=== PATIENT | female | born 1985 | race Caucasian/White ===

== ENCOUNTER 2019-06-14 17:31 | Emergency (ER) | payer MEDICAID ==
--- NOTE | 2019-06-14 18:18 | EDM.PDOC ---
ED HPI GENERAL MEDICAL PROBLEM - General Chief Complaint: Lower Extremity Injury/Pain Stated Complaint: RIGHT ANKLE INJURY Time Seen by Provider: 06/14/19 18:15 Source of Information: Reports: Patient History Limitations: Reports: No Limitations - History of Present Illness INITIAL COMMENTS - FREE TEXT/NARRATIVE: pt arrived with pain in her rt ankle. She notes swelling and discomfort in her rt foot also. Onset: Today, Sudden Duration: Hour(s): Location: Reports: Lower Extremity, Right Associated Symptoms: Reports: No Other Symptoms - Related Data Allergies Allergy/AdvReac Type Severity Reaction Status Date / Time No Known Allergies Allergy Verified 06/14/19 17:58 Home Meds: Home Meds 123/Iron/Folic/Omeg3s [One-A-Day 1 Dha Sfgl] 1 cap PO DAILY [History] Past Medical History Musculoskeletal History: Reports: Fracture - Past Surgical History HEENT Surgical History: Reports: Adenoidectomy, Tonsillectomy Musculoskeletal Surgical History: Reports: ORIF Social & Family History - Tobacco Use Smoking Status *Q: Current Every Day Smoker Years of Tobacco use: 20 Packs/Tins Daily: 0.5 Review of Systems - Review of Systems Review Of Systems: See Below Constitutional: Reports: No Symptoms Eyes: Reports: No Symptoms Ears: Reports: No Symptoms Nose: Reports: No Symptoms Mouth/Throat: Reports: No Symptoms Respiratory: Reports: No Symptoms Cardiovascular: Reports: No Symptoms GI/Abdominal: Reports: No Symptoms Genitourinary: Reports: No Symptoms Musculoskeletal: Reports: Other (pain and swelling in the rt foot) Skin: Reports: No Symptoms Neurological: Reports: No Symptoms Psychiatric: Reports: No Symptoms ED EXAM, GENERAL - Physical Exam Exam: See Below Free Text/Narrative:: pt is due to deliver her baby in 2 weeks. She rolled her rt ankle. She has had a previous fracture in the leg. She does have swelling laterally on the ankle and down into the foot. Exam Limited By: No Limitations General Appearance: Alert Extremities: Other (pt has a good pulse in the foot. She has swelling laterally on the ankle. She is tender over the dorsum of the foot. She has normal pulses and normal sensation,. ) Neurological: Alert, Oriented, Normal Cognition Course - Vital Signs Last Recorded V/S: Last Vital Signs Temp 36.7 C 06/14/19 18:04 Pulse 88 06/14/19 18:04 Resp 14 06/14/19 18:04 BP 111/62 06/14/19 18:04 Pulse Ox 95 06/14/19 18:04 - Orders/Labs/Meds Orders: Active Orders 24 hr Category Date Time Status Ankle Min 3V Rt [CR] Stat Exams 06/14/19 18:13 Taken Meds: Medications Discontinued Medications Generic Name Dose Route Start Last Admin Trade Name Freq PRN Reason Stop Dose Admin Acetaminophen 650 mg 06/14/19 19:04 06/14/19 19:22 Tylenol PO 06/14/19 19:05 Not Given NOW ONE - Re-Assessments/Exams Free Text/Narrative Re-Assessment/Exam: 06/15/19 18:22 xrays were obtained which reveals her pinning from her previous fracture in the ankle. She has no fractures in the foot. She was given crutches and will use tylenol for pain. Departure - Departure Time of Disposition: 18:57 Disposition: Home, Self-Care 01 Condition: Fair Clinical Impression: Right ankle sprain - Discharge Information Instructions: Crutch Use, Adult, [id number], Ankle Sprain, [id number] Referrals: Naomie Burdick CNM [Primary Care Provider] - Forms: ED Department Discharge Care Plan Goals: elevate cool pack, stirup splint crutches. tylenol 650 q6h prn for pain. Sepsis Event Note - Evaluation Sepsis Screening Result: No Definite Risk - Focused Exam Date Exam was Performed: 06/15/19 Time Exam was Performed: 18:20 - My Orders Last 24 Hours: My Active Orders 06/14/19 18:13 Ankle Min 3V Rt [CR] Stat - Assessment/Plan Last 24 Hours: My Active Orders 06/14/19 18:13 Ankle Min 3V Rt [CR] Stat
[2019-06-14] MEDS ORDERED: Acetaminophen 325 MG Tab PO ONE (19:04)
--- NOTE | 2019-06-14 19:05 | CRLCR ---
Indication: Rolled ankle. Foot pain. Trauma. Technique: Three images of the right foot were acquired. Comparison: None Findings: There is no fracture, dislocation or destructive process acutely. There postsurgical changes involving the distal tibia. While the ankle was not formally studied, I see no ankle fracture. 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 Impression: No visible acute fracture, dislocation or destructive process involving the right foot. 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 Postsurgical changes involving the tibia. Dictated by Mango Mckeon MD @ Jun 14 2019 7:01PM Signed by Dr. Mango Mckeon @ Jun 14 2019 7:03PM
--- NOTE | 2019-06-16 11:25 | CR ---
Ankle Min 3V Rt CLINICAL HISTORY: Pain, injury FINDINGS: The soft tissues are mildly prominent around the ankle. There is an intramedullary luis angel in the tibia extending to the distal tibial metaphysis. No acute fracture or dislocation is noted. Ankle mortise is intact. Articular surfaces are smooth. Impression: Long intramedullary luis angel in the tibia No acute fracture or dislocation
== END 2019-06-14 19:23 | disposition home or self-care (01) ==
LOC: JP.ED 17:31
DX: O9A.213 Injury, poisoning and certain other consequences of external causes complicating pregnancy, third trimester (principal); S93.401A Sprain of unspecified ligament of right ankle, initial encounter; O99.333 Smoking (tobacco) complicating pregnancy, third trimester; F17.210 Nicotine dependence, cigarettes, uncomplicated; Z3A.38 38 weeks gestation of pregnancy; X50.1XXA Overexertion from prolonged static or awkward postures, initial encounter
CPT/HCPCS: 73610-26-RT; 73610-RT; 73630-RT; 99283-25

== ENCOUNTER 2019-06-15 11:05 | Inpatient (IN) | payer MEDICAID ==
[2019-06-15] MEDS ORDERED: Naloxone 0.4 MG/ML SDV IVPUSH PRN (13:54)
[2019-06-15] MEDS ORDERED: diphenhydrAMINE 50 MG/ML SDV IVPUSH PRN ×2 (13:54)
[2019-06-15] MEDS ORDERED: Sodium Chloride 0.9% 10 ML Syringe FLUSH PRN (13:54)
[2019-06-15] MEDS ORDERED: Acetaminophen 325 MG Tab PO PRN (13:54)
[2019-06-15] MEDS ORDERED: Ondansetron 4 MG/2 ML SDV IV PRN (13:54)
[2019-06-15] MEDS ORDERED: Lactated Ringers 1,000 ML IV ONE ×2 (13:54→16:10)
[2019-06-15] MEDS ORDERED: ePHEDrine 50 MG/ML SDV IVPUSH PRN ×2 (13:54)
[2019-06-15] MEDS ORDERED: Ropivacaine 200 MG in Premix Bag 1 BAG EPIDUR SCH (14:00)
--- NOTE | 2019-06-15 14:05 | PCM.LDHP ---
L&D History of Present Illness - General Date of Service: 06/15/19 Admit Problem/Dx: Patient Status Order with Admit Dx/Problem 06/15/19 13:54 Patient Status [ADT] Routine Admission Diagnosis/Problem Admission Diagnosis/Problem - Related Data Allergies/Adverse Reactions: Allergies Allergy/AdvReac Type Severity Reaction Status Date / Time No Known Allergies Allergy Verified 06/14/19 17:58 Home Medications: Home Meds 123/Iron/Folic/Omeg3s [One-A-Day 1 Dha Sfgl] 1 cap PO DAILY [History] Past Medical History HEENT History: Reports: None Cardiovascular History: Reports: None Respiratory History: Reports: None Gastrointestinal History: Reports: None Genitourinary History: Reports: None 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: Reports: Musculoskeletal History: Reports: Fracture Neurological History: Reports: None Psychiatric History: Reports: Addiction Endocrine/Metabolic History: Reports: None Hematologic History: Reports: None Immunologic History: Reports: None Oncologic (Cancer) History: Reports: None Dermatologic History: Reports: None - Infectious Disease History Infectious Disease History: Reports: Hepatitis C - Past Surgical History Head Surgeries/Procedures: Reports: None HEENT Surgical History: Reports: Adenoidectomy, Tonsillectomy Cardiovascular Surgical History: Reports: None Respiratory Surgical History: Reports: None GI Surgical History: Reports: None Female Surgical History: Reports: None Endocrine Surgical History: Reports: None Neurological Surgical History: Reports: None Musculoskeletal Surgical History: Reports: ORIF Dermatological Surgical History: Reports: None Social & Family History - Tobacco Use Smoking Status *Q: Current Every Day Smoker Years of Tobacco use: 20 Packs/Tins Daily: 0.5 Used Tobacco, but Quit: No Second Hand Smoke Exposure: Yes - Caffeine Use Caffeine Use: Reports: Coffee - Recreational Drug Use Recreational Drug Use: No H&P Review of Systems - Review of Systems: Review Of Systems: See Below General: Reports: No Symptoms HEENT: Reports: No Symptoms Pulmonary: Reports: No Symptoms Cardiovascular: Reports: No Symptoms Gastrointestinal: Reports: No Symptoms Genitourinary: Reports: No Symptoms Musculoskeletal: Reports: No Symptoms Skin: Reports: No Symptoms Psychiatric: Reports: No Symptoms Neurological: Reports: No Symptoms Hematologic/Lymphatic: Reports: No Symptoms Immunologic: Reports: No Symptoms L&D Exam - Exam Exam: See Below - Vital Signs Vital Signs: Last Vital Signs Temp 35.3 C L 06/15/19 11:10 Pulse 121 H 06/15/19 11:10 Resp 16 06/15/19 11:10 BP 123/74 06/15/19 11:10 Pulse Ox 98 06/15/19 11:10 Weight: 92.986 kg - OB Specific Contraction Duration (sec): 20-100 Contraction Frequency (min): 3-7 Contraction Intensity: Mild to Moderate Movement: Active Heart Tones: Present Heart Rate (FHR) Variability: Moderate (6-25 bmp) Presentation: Vertex - Valadez Score Valadez Score Cervix Position: Anterior Valadez Score Consistency: Soft Valadez Score Effacement: >80% Valadez Score Dilation: 1-2 cm Valadez Score 's Station: -1 ,0 Valadez Score Total: 10 - Exam General: Alert, Oriented, Cooperative HEENT: PERRLA, Conjunctiva Clear, EACs Clear, EOMI, Hearing Intact, Mucosa Moist & [place], Nares Patent, Normal Nasal Septum, Posterior Pharynx Clear, TMs Clear Neck: Supple, Trachea Midline Lungs: Clear to Auscultation, Normal Respiratory Effort Cardiovascular: Regular Rate, Regular Rhythm GI/Abdominal Exam: Normal Bowel Sounds, Soft, Non-Tender, No Organomegaly, No Distention, No Abnormal Bruit, No Mass, Pelvis Stable Rectal Exam: Normal Exam, Normal Rectal Tone Genitourinary: Normal external exam, Normal bimanual exam, Normal speculum exam Back Exam: Normal Inspection, Full Range of Motion Extremities: Normal Inspection, Normal Range of Motion, Non-Tender, No Pedal Edema, Normal Capillary Refill Skin: Warm, Dry, Intact Neurological: Cranial Nerves Intact, Reflexes Equal Bilateral DTR: 2+: Patella (L), Patella (R) Psychiatric: Alert, Normal Affect, Normal Mood - Patient Data Lab Results Last 24 hrs: Laboratory Results - last 24 hr 06/15/19 06/15/19 06/15/19 Range/Units 11:10 11:11 11:51 WBC (4.5-11.0) K/uL RBC (3.30-5.50) M/uL Hgb (12.0-15.0) g/dL Hct (36.0-48.0) % MCV (80-98) fL MCH (27-31) pg MCHC (32-36) % Plt Count (150-400) K/uL Neut % (Auto) (36-66) % Lymph % (Auto) (24-44) % [place] % (Auto) (2-6) % Eos % (Auto) (2-4) % Baso % (Auto) (0-1) % Urine Color Yellow (YELLOW) Urine Appearance Slightly cloudy A (CLEAR) Urine pH 7.0 (5.0-8.0) Ur Specific [place] 1.020 (1.008-1.030) Urine Protein 30 H (NEGATIVE) mg/dL Urine Glucose (UA) Negative (NEGATIVE) mg/dL Urine Ketones Negative (NEGATIVE) mg/dL Urine Occult Blood Large H (NEGATIVE) Urine Nitrite Negative (NEGATIVE) Urine Bilirubin Negative (NEGATIVE) Urine Urobilinogen 1.0 (0.2-1.0) EU/dL Ur Leukocyte Esterase Negative (NEGATIVE) Urine RBC 10-20 H (0-5) Urine WBC 0-5 (0-5) Ur Epithelial Cells Many Amorphous Sediment Not seen Urine Bacteria Few Urine Mucus Not seen Membrane Rupture Positive H (NEGATIVE) Urine Opiates Screen Negative (NEGATIVE) Ur Oxycodone Screen Negative (NEGATIVE) Urine Methadone Screen Negative (NEGATIVE) Ur Propoxyphene Screen Negative (NEGATIVE) Ur Barbiturates Screen Negative (NEGATIVE) Ur Tricyclics Screen Negative (NEGATIVE) Ur Phencyclidine Scrn Negative (NEGATIVE) Ur Amphetamine Screen Negative (NEGATIVE) U Methamphetamines Scrn Negative (NEGATIVE) Urine MDMA Screen Negative (NEGATIVE) U Benzodiazepines Scrn Negative (NEGATIVE) U Cocaine Metab Screen Negative (NEGATIVE) U Marijuana (THC) Screen Negative (NEGATIVE) 06/15/19 Range/Units 12:34 WBC 12.3 H (4.5-11.0) K/uL RBC 3.83 (3.30-5.50) M/uL Hgb 9.7 L (12.0-15.0) g/dL Hct 31.6 L (36.0-48.0) % MCV 83 (80-98) fL MCH 25 L (27-31) pg MCHC 31 L (32-36) % Plt Count 445 H (150-400) K/uL Neut % (Auto) 76 H (36-66) % Lymph % (Auto) 16 L (24-44) % [place] % (Auto) 7 H (2-6) % Eos % (Auto) 1 L (2-4) % Baso % (Auto) 0 (0-1) % Urine Color (YELLOW) Urine Appearance (CLEAR) Urine pH (5.0-8.0) Ur Specific [place] (1.008-1.030) Urine Protein (NEGATIVE) mg/dL Urine Glucose (UA) (NEGATIVE) mg/dL Urine Ketones (NEGATIVE) mg/dL Urine Occult Blood (NEGATIVE) Urine Nitrite (NEGATIVE) Urine Bilirubin (NEGATIVE) Urine Urobilinogen (0.2-1.0) EU/dL Ur Leukocyte Esterase (NEGATIVE) Urine RBC (0-5) Urine WBC (0-5) Ur Epithelial Cells Amorphous Sediment Urine Bacteria Urine Mucus Membrane Rupture (NEGATIVE) Urine Opiates Screen (NEGATIVE) Ur Oxycodone Screen (NEGATIVE) Urine Methadone Screen (NEGATIVE) Ur Propoxyphene Screen (NEGATIVE) Ur Barbiturates Screen (NEGATIVE) Ur Tricyclics Screen (NEGATIVE) Ur Phencyclidine Scrn (NEGATIVE) Ur Amphetamine Screen (NEGATIVE) U Methamphetamines Scrn (NEGATIVE) Urine MDMA Screen (NEGATIVE) U Benzodiazepines Scrn (NEGATIVE) U Cocaine Metab Screen (NEGATIVE) U Marijuana (THC) Screen (NEGATIVE) Result Diagrams: 06/15/19 12:34 - Problem List (1) SNOMED Code(s): 20387137 ICD Code: Z34.90 - ENCNTR FOR SUPRVSN OF NORMAL , UNSP, UNSP TRIMESTER Status: Acute Current Visit: Yes Qualifiers: Weeks of gestation: 38 weeks Qualified Code(s): Z3A.38 - 38 weeks gestation of (2) History of drug abuse SNOMED Code(s): 917753207 ICD Code: F19.11 - OTHER PSYCHOACTIVE SUBSTANCE ABUSE, IN REMISSION Status : Acute Current Visit: Yes (3) Hepatitis C antibody test positive SNOMED Code(s): 926750478 ICD Code: R76.8 - OTHER SPECIFIED ABNORMAL IMMUNOLOGICAL FINDINGS IN SERUM Status: Acute Current Visit: Yes (4) SROM (spontaneous rupture of membranes) SNOMED Code(s): 230460703 ICD Code: GSC0763 - Status: Acute Current Visit: Yes Problem List Initiated/Reviewed/Updated: Yes Orders Last 24hrs: Active Orders 24 hr Category Date Time Status Patient Status [ADT] Routine ADT 06/15/19 13:54 Ordered Communication Order [RC] ASDIRECTED Care 06/15/19 13:54 Ordered Communication Order [RC] ASDIRECTED Care 06/15/19 13:54 Ordered Communication Order [RC] ROUTINE Care 06/15/19 13:54 Ordered Communication Order [RC] ROUTINE Care 06/15/19 13:54 Ordered Communication Order [RC] ROUTINE Care 06/15/19 13:54 Ordered Heart Tones [RC] PER UNIT ROUTINE Care 06/15/19 13:54 Ordered Non Stress Test [RC] Click to Edit Care 06/15/19 13:54 Ordered Insert Urinary Catheter [OM.PC] ASDIRECTED Care 06/15/19 14:00 Ordered Local Anesthetic Infusion Pump [RC] ASDIRECTED Care 06/15/19 13:54 Ordered May Shower [RC] ASDIRECTED Care 06/15/19 13:54 Ordered Notify Provider Vital Signs [RC] PRN Care 06/15/19 13:54 Ordered Notify Provider [RC] PRN Care 06/15/19 13:54 Ordered OB Check [OM.PC] Click to Edit Care 06/15/19 11:10 Ordered Oxygen Therapy [RC] ASDIRECTED Care 06/15/19 13:54 Ordered PCEA Epidural [RC] ASDIRECTED Care 06/15/19 13:54 Ordered PCEA Epidural [RC] ASDIRECTED Care 06/15/19 13:54 Ordered PCEA Epidural [RC] ASDIRECTED Care 06/15/19 13:54 Ordered Peripheral IV Care [RC] . DIRECTED Care 06/15/19 13:54 Ordered Pulse Oximetry [RC] ASDIRECTED Care 06/15/19 13:54 Ordered Up ad Lisa [RC] ASDIRECTED Care 06/15/19 13:54 Ordered Up to Chair [RC] QID Care 06/15/19 13:54 Ordered Urinary Catheter Assessment [RC] ASDIRECTED Care 06/15/19 13:54 Ordered Vital Signs [RC] PER UNIT ROUTINE Care 06/15/19 13:54 Ordered Vital Signs [RC] PER UNIT ROUTINE Care 06/15/19 13:54 Ordered Regular Diet [DIET] Diet 06/15/19 Lunch Ordered Acetaminophen [Tylenol] Med 06/15/19 13:54 Ordered 650 mg PO Q4H PRN Lactated Ringers [Ringers, Lactated] 1,000 ml Med 06/15/19 13:54 Ordered IV .BOLUS Naloxone [Narcan] Med 06/15/19 13:54 Ordered 0.1 mg IVPUSH ASDIRECTED PRN Ondansetron [Zofran] Med 06/15/19 13:54 Ordered 4 mg IV Q4H PRN Oxytocin/Normal Saline [Pitocin in NS 20 Units/1,000 ML Med 06/15/19 14:00 Ordered ] 20 unit in 1,000 ml IV TITRATE Ropivacaine [Naropin 0.2%] 200 mg Med 06/15/19 14:00 Ordered Premix Bag 1 bag EPIDUR ASDIRECTED Sodium Chloride 0.9% [Saline Flush] Med 06/15/19 13:54 Ordered 10 ml FLUSH ASDIRECTED PRN diphenhydrAMINE [Benadryl] Med 06/15/19 13:54 Ordered 25 mg IVPUSH Q6H PRN diphenhydrAMINE [Benadryl] Med 06/15/19 13:54 Ordered 50 mg IVPUSH Q6H PRN ePHEDrine [ePHEDrine sulfate] Med 06/15/19 13:54 Ordered 10 mg IVPUSH ASDIRECTED PRN ePHEDrine [ePHEDrine sulfate] Med 06/15/19 13:54 Ordered 10 mg IVPUSH ASDIRECTED PRN Epidural Catheter Management [OM.PC] Routine Oth 06/15/19 13:54 Ordered Epidural Catheter Management [OM.PC] Urgent Oth 06/15/19 13:54 Ordered Peripheral IV Insertion Pediatric [OM.PC] Routine Oth 06/15/19 13:54 Ordered Saline Lock Insert [OM.PC] Routine Oth 06/15/19 13:54 Ordered Resuscitation Status Routine Resus Stat 06/15/19 13:54 Ordered Medication Orders Oxytocin/Sodium Chloride (Pitocin In Ns 20 Units/1,000 Ml) 20 unit in 1,000 mls @ 6 mls/hr IV TITRATE TYSON; Protocol Assessment/Plan Comment:: 06/15/2019 34 yo who came in today with SROM around 1030 at home. Amnisure positive SVE-2-3/80/-1 Can feel a forebag Contractions irregular FHTs category one History of drug abuse Late to care Hepatitis C positive Labs-O positive, RPR nonreactive, Hep B neg, HIV neg, GBS neg, Hgb-9.7 Plan- Monitor for labor Monitor FHTs Second IV for low hgb risk Start pitocin to augment labor Patient desires an epidural Once comfortable will come break her forebag Plan and anticipate a vaginal delivery
[2019-06-15] MEDS ORDERED: Ropivacaine 100 ML ONE (15:50)
[2019-06-15] MEDS ORDERED: Lactated Ringers 1,000 ML IV SCH (17:15)
[2019-06-15] MEDS ORDERED: Witch Hazel Medicated Pads 100/Jar TOP ONE (19:08)
[2019-06-15] MEDS ORDERED: Lanolin 100% Cream 40 GM Tube TOP ONE (19:08)
[2019-06-15] MEDS ORDERED: Docusate Sodium 100 MG Cap PO PRN (19:08)
[2019-06-15] MEDS ORDERED: Ibuprofen 200 MG Tab, 24 Tab Bulk Bottle PO PRN (19:08)
[2019-06-15] MEDS ORDERED: Benzocaine 20% Top Spray 56 GM Bottle TOP ONE (19:08)
[2019-06-15] MEDS ORDERED: Acetaminophen 325 MG Tab, 50 Tab Bulk Bottle PO PRN (19:08)
--- NOTE | 2019-06-15 19:38 | PCM.DEL ---
L & D Note - General Info Date of Service: 06/15/19 Mother's Due Date: 06/27/19 - Delivery Note Labor: Spontaneous Delivery Outcome: Livebirth Infant Delivery Method: Spontaneous Vaginal Delivery-Single Infant Delivery Mode: Spontaneous Presentation: Vertex Nuchal Cord: Present, Reduced Anesthesia Type: Epidural Laceration: None Placenta: Intact, Spontaneous Cord: 3 Vessels Estimated Blood Loss: 250 Resuscitation Needed: No [place]: Bulb Syringe, Stimulated, Warmed, [place] Used Score 1 min: 9 Score 5 min: 9 Second Stage Interventions: Reports: Second Nurse Assessed Progress of Descent, Second Nurse Reviewed Contraction Pattern, Second Nurse Reviewed Heart Tones, Encouragement Given, Pushing Effectively, Pushing, McRobert's Position, Pushing, Stirrups/Leg Supports Delivery Comments (Free Text/Narrative):: 06/15/2019 34 yo delivered a viable male infant in TAYLER position at 1851 on 06/15/2019. Infant had a nuchal cord that was reduced. Mother pushed effectively and somersaulted out into providers arms. was delivered and placed on mothers abdomen on a prewarmed blanket. Delayed cord clamping done for approximately 60 seconds then cord was double clamped and cut by father of . was pink and crying vigorously. APGARS-9/9, weight-6lbs 15oz, length-19inches, was warmed, stimulated, and dried. Placenta intact, spontaneous, EBL-250ml. now skin to skin and stable with mother in labor room. Stages of labor- [id number] - General Info Date of Service: 06/15/19 Functional Status: Reports: Pain Controlled - Review of Systems General: Reports: No Symptoms HEENT: Reports: No Symptoms Pulmonary: Reports: No Symptoms Cardiovascular: Reports: No Symptoms Gastrointestinal: Reports: No Symptoms Genitourinary: Reports: No Symptoms Musculoskeletal: Reports: No Symptoms Skin: Reports: No Symptoms Neurological: Reports: No Symptoms Psychiatric: Reports: No Symptoms - Patient Data Vitals - Most Recent: Last Vital Signs Temp 35.7 C L 06/15/19 18:00 Pulse 97 06/15/19 18:30 Resp 16 06/15/19 18:30 BP 116/73 06/15/19 18:30 Pulse Ox 99 06/15/19 18:30 Weight - Most Recent: 92.986 kg I&O - Last 24 Hours: Intake & Output 06/15/19 06/15/19 06/15/19 06:59 14:59 22:59 Intake Total 1000 1000 Balance 1000 1000 Lab Results Last 24 Hours: Laboratory Results - last 24 hr 06/15/19 06/15/19 06/15/19 Range/Units 11:10 11:11 11:51 WBC (4.5-11.0) K/uL RBC (3.30-5.50) M/uL Hgb (12.0-15.0) g/dL Hct (36.0-48.0) % MCV (80-98) fL MCH (27-31) pg MCHC (32-36) % Plt Count (150-400) K/uL Neut % (Auto) (36-66) % Lymph % (Auto) (24-44) % Morrison % (Auto) (2-6) % Eos % (Auto) (2-4) % Baso % (Auto) (0-1) % Urine Color Yellow (YELLOW) Urine Appearance Slightly cloudy A (CLEAR) Urine pH 7.0 (5.0-8.0) Ur Specific Wood 1.020 (1.008-1.030) Urine Protein 30 H (NEGATIVE) mg/dL Urine Glucose (UA) Negative (NEGATIVE) mg/dL Urine Ketones Negative (NEGATIVE) mg/dL Urine Occult Blood Large H (NEGATIVE) Urine Nitrite Negative (NEGATIVE) Urine Bilirubin Negative (NEGATIVE) Urine Urobilinogen 1.0 (0.2-1.0) EU/dL Ur Leukocyte Esterase Negative (NEGATIVE) Urine RBC 10-20 H (0-5) Urine WBC 0-5 (0-5) Ur Epithelial Cells Many Amorphous Sediment Not seen Urine Bacteria Few Urine Mucus Not seen Membrane Rupture Positive H (NEGATIVE) Urine Opiates Screen Negative (NEGATIVE) Ur Oxycodone Screen Negative (NEGATIVE) Urine Methadone Screen Negative (NEGATIVE) Ur Propoxyphene Screen Negative (NEGATIVE) Ur Barbiturates Screen Negative (NEGATIVE) Ur Tricyclics Screen Negative (NEGATIVE) Ur Phencyclidine Scrn Negative (NEGATIVE) Ur Amphetamine Screen Negative (NEGATIVE) U Methamphetamines Scrn Negative (NEGATIVE) Urine MDMA Screen Negative (NEGATIVE) U Benzodiazepines Scrn Negative (NEGATIVE) U Cocaine Metab Screen Negative (NEGATIVE) U Marijuana (THC) Screen Negative (NEGATIVE) 06/15/19 Range/Units 12:34 WBC 12.3 H (4.5-11.0) K/uL RBC 3.83 (3.30-5.50) M/uL Hgb 9.7 L (12.0-15.0) g/dL Hct 31.6 L (36.0-48.0) % MCV 83 (80-98) fL MCH 25 L (27-31) pg MCHC 31 L (32-36) % Plt Count 445 H (150-400) K/uL Neut % (Auto) 76 H (36-66) % Lymph % (Auto) 16 L (24-44) % Morrison % (Auto) 7 H (2-6) % Eos % (Auto) 1 L (2-4) % Baso % (Auto) 0 (0-1) % Urine Color (YELLOW) Urine Appearance (CLEAR) Urine pH (5.0-8.0) Ur Specific [place] (1.008-1.030) Urine Protein (NEGATIVE) mg/dL Urine Glucose (UA) (NEGATIVE) mg/dL Urine Ketones (NEGATIVE) mg/dL Urine Occult Blood (NEGATIVE) Urine Nitrite (NEGATIVE) Urine Bilirubin (NEGATIVE) Urine Urobilinogen (0.2-1.0) EU/dL Ur Leukocyte Esterase (NEGATIVE) Urine RBC (0-5) Urine WBC (0-5) Ur Epithelial Cells Amorphous Sediment Urine Bacteria Urine Mucus Membrane Rupture (NEGATIVE) Urine Opiates Screen (NEGATIVE) Ur Oxycodone Screen (NEGATIVE) Urine Methadone Screen (NEGATIVE) Ur Propoxyphene Screen (NEGATIVE) Ur Barbiturates Screen (NEGATIVE) Ur Tricyclics Screen (NEGATIVE) Ur Phencyclidine Scrn (NEGATIVE) Ur Amphetamine Screen (NEGATIVE) U Methamphetamines Scrn (NEGATIVE) Urine MDMA Screen (NEGATIVE) U Benzodiazepines Scrn (NEGATIVE) U Cocaine Metab Screen (NEGATIVE) U Marijuana (THC) Screen (NEGATIVE) Med Orders - Current: Current Medications Acetaminophen (Tylenol) 650 mg PO Q4H PRN PRN Reason: Pain (Mild 1-3) and fever Acetaminophen (Tylenol Bulk Bottle) 0 mg PO Q4H PRN PRN Reason: Pain Diphenhydramine HCl (Benadryl) 25 mg IVPUSH Q6H PRN PRN Reason: Itching Diphenhydramine HCl (Benadryl) 50 mg IVPUSH Q6H PRN PRN Reason: Itching Docusate Sodium (Colace) 100 mg PO BID PRN PRN Reason: Constipation Ephedrine Sulfate (Ephedrine Sulfate) 10 mg IVPUSH ASDIRECTED PRN PRN Reason: Hypotension Last Admin: 06/15/19 16:11 Dose: 10 mg Ephedrine Sulfate (Ephedrine Sulfate) 10 mg IVPUSH ASDIRECTED PRN PRN Reason: Hypotension Oxytocin/Sodium Chloride (Pitocin In Ns 20 Units/1,000 Ml) 20 unit in 1,000 mls @ 6 mls/hr IV TITRATE TYSON; Protocol Last Titration: 06/15/19 18:19 Dose: 12 munits/min, 36 mls/hr Ropivacaine 200 mg/ Premix 100 mls @ 0 mls/hr EPIDUR ASDIRECTED TYSON Last Admin: 06/15/19 15:45 Dose: 12 mls/hr Lactated Ringer's (Ringers, Lactated) 1,000 mls @ 125 mls/hr IV ASDIRECTED TYSON Ibuprofen (Motrin Bulk Bottle) 600 mg PO Q6H PRN PRN Reason: Pain Naloxone HCl (Narcan) 0.1 mg IVPUSH ASDIRECTED PRN PRN Reason: Oversedation Ondansetron HCl (Zofran) 4 mg IV Q4H PRN PRN Reason: Nausea/Vomiting Sodium Chloride (Saline Flush) 10 ml FLUSH ASDIRECTED PRN PRN Reason: Keep Vein Open Discontinued Medications Benzocaine (Cbnf-L-Qmeviuc 20% [place]) 0 gm TOP ONETIME ONE Stop: 06/15/19 19:09 Emollient Ointment (Lansinoh Hpa) 1 gm TOP ONETIME ONE Stop: 06/15/19 19:09 Lactated Ringer's (Ringers, Lactated) 1,000 mls @ 999 mls/hr IV .BOLUS ONE Stop: 06/15/19 14:54 Last Admin: 06/15/19 14:10 Dose: 999 mls/hr Ropivacaine (Naropin 0.2%) Confirm Administered Dose 100 mls @ as directed .ROUTE .STK-MED ONE Stop: 06/15/19 15:51 Lactated Ringer's (Ringers, Lactated) 1,000 mls @ 999 mls/hr IV BOLUS ONE Stop: 06/15/19 17:10 Gabino Henao (Tucks) 1 pad TOP ONETIME ONE Stop: 06/15/19 19:09 - Exam General: Alert, Oriented, Cooperative HEENT: Pupils Equal, Pupils Reactive, EOMI, Mucous Membr. Moist/[place] Neck: Supple Lungs: Clear to Auscultation, Normal Respiratory Effort Cardiovascular: Regular Rate, Regular Rhythm GI/Abdominal Exam: Normal Bowel Sounds, Soft, Non-Tender, No Organomegaly, No Distention, No Abnormal Bruit, No Mass, Pelvis Stable (Female) Exam: Normal External Exam, Normal Speculum Exam, Normal Bimanual Exam, Enlarged Uterus, Vaginal Bleeding Back Exam: Normal Inspection, Full Range of Motion Extremities: Normal Inspection, Normal Range of Motion, Non-Tender, No Pedal Edema, Normal Capillary Refill Skin: Warm, Dry, Intact Neurological: No New Focal Deficit Psy/Mental Status: Alert, Normal Affect, Normal Mood - Problem List & Annotations (1) SNOMED Code(s): 68305728 Code(s): Z34.90 - ENCNTR FOR SUPRVSN OF NORMAL , UNSP, UNSP TRIMESTER Status: Acute Current Visit: Yes Qualifiers: Weeks of gestation: 38 weeks Qualified Code(s): Z3A.38 - 38 weeks gestation of (2) History of drug abuse SNOMED Code(s): 385951563 Code(s): F19.11 - OTHER PSYCHOACTIVE SUBSTANCE ABUSE, IN REMISSION Status: Acute Current Visit: Yes (3) Hepatitis C antibody test positive SNOMED Code(s): 616128672 Code(s): R76.8 - OTHER SPECIFIED ABNORMAL IMMUNOLOGICAL FINDINGS IN SERUM Status: Acute Current Visit: Yes (4) SROM (spontaneous rupture of membranes) SNOMED Code(s): 142739769 Code(s): TDZ0651 - Status: Acute Current Visit: Yes - Problem List Review Problem List Initiated/Reviewed/Updated: Yes - My Orders Last 24 Hours: My Active Orders 06/15/19 06:00 CBC WITH AUTO DIFF [HEME] Routine 06/15/19 11:10 OB Check [OM.PC] Click to Edit 06/15/19 13:54 Patient Status [ADT] Routine Communication Order [RC] ASDIRECTED Communication Order [RC] ASDIRECTED Communication Order [RC] ROUTINE Communication Order [RC] ROUTINE Communication Order [RC] ROUTINE Local Anesthetic Infusion Pump [RC] ASDIRECTED May Shower [RC] ASDIRECTED Notify Provider Vital Signs [RC] PRN Notify Provider [RC] PRN Oxygen Therapy [RC] ASDIRECTED PCEA Epidural [RC] ASDIRECTED Peripheral IV Care [RC] . DIRECTED Pulse Oximetry [RC] ASDIRECTED Up ad Lisa [RC] ASDIRECTED Up to Chair [RC] QID Urinary Catheter Assessment [RC] ASDIRECTED Vital Signs [RC] PER UNIT ROUTINE Acetaminophen [Tylenol] 650 mg PO Q4H PRN Naloxone [Narcan] 0.1 mg IVPUSH ASDIRECTED PRN Ondansetron [Zofran] 4 mg IV Q4H PRN Sodium Chloride 0.9% [Saline Flush] 10 ml FLUSH ASDIRECTED PRN diphenhydrAMINE [Benadryl] 25 mg IVPUSH Q6H PRN diphenhydrAMINE [Benadryl] 50 mg IVPUSH Q6H PRN ePHEDrine [ePHEDrine sulfate] 10 mg IVPUSH ASDIRECTED PRN ePHEDrine [ePHEDrine sulfate] 10 mg IVPUSH ASDIRECTED PRN Epidural Catheter Management [OM.PC] Routine Epidural Catheter Management [OM.PC] Urgent Peripheral IV Insertion Pediatric [OM.PC] Routine Saline Lock Insert [OM.PC] Routine Resuscitation Status Routine 06/15/19 14:00 Insert Urinary Catheter [OM.PC] ASDIRECTED Oxytocin/Normal Saline [Pitocin in NS 20 Units/1,000 ML] 20 unit in 1,000 ml IV TITRATE Ropivacaine [Naropin 0.2%] 200 mg Premix Bag 1 bag EPIDUR ASDIRECTED 06/15/19 17:15 Lactated Ringers [Ringers, Lactated] 1,000 ml IV ASDIRECTED 06/15/19 19:08 Ambulate [RC] PER UNIT ROUTINE Consult to Case Management/Assisted Living Assistant [CONS] Routine Acetaminophen [Tylenol Bulk Bottle] See Dose Instructions PO Q4H PRN Docusate Sodium [Colace] 100 mg PO BID PRN Ibuprofen [Motrin Bulk Bottle] 600 mg PO Q6H PRN Assess Lochia [WOMSER] Per Unit Routine Assess Uterine Involution [WOMSER] Per Unit Routine DVT/VTE Prophylaxis Reflex [OM.PC] Routine 06/15/19 19:09 Patient Status [ADT] Routine Vital Signs [RC] PFP 06/15/19 19:10 VTE/DVT Education [RC] Click to Edit Perineal Care [OM.PC] Per Unit Routine 06/15/19 Lunch Regular Diet [DIET] - Assessment Assessment:: 06/15/2019 34 yo without complications History of drug abuse Hepatitis C Anemia-iron deficiency anemia - Plan Plan:: 06/15/2019 34 yo who came in today with SROM around 1030 at home. Amnisure positive SVE-2-/-1 Can feel a forebag Contractions irregular FHTs category one History of drug abuse Late to care Hepatitis C positive Labs-O positive, RPR nonreactive, Hep B neg, HIV neg, GBS neg, Hgb-9.7 Plan- Monitor for labor Monitor FHTs Second IV for low hgb risk Start pitocin to augment labor Patient desires an epidural Once comfortable will come break her forebag Plan and anticipate a vaginal delivery 06/15/2019 Routine cares Encourage and support Social Service consult
--- NOTE | 2019-06-16 07:11 | ANES ---
DATE OF SERVICE: 06/15/2019 INDICATIONS: I was called this afternoon for a young lady on the labor epidural floor requesting a labor epidural, was at the bedside at approximately 1520. Risks and benefits were reviewed with the patient. The patient has had epidurals done before without any difficulties. The patient stated that she has had a normal . No abnormal bleeding disorders that would require any blood thinners. Denies high blood pressure or any heart valve issues. The platelet count was noted to be 445. The patient agrees to do the labor epidural at this time. TECHNIQUE: The patient was then sat at the edge of the bed. Betadine prep x3 to the lumbar region was done. Sterile drape was placed. Time-out was done at that time. 1% lidocaine skin wheal and deep was done. A 17-gauge Tuohy needle was inserted at approximately the L3- 4 position. Loss of resistance was easily achieved. Negative paresthesia, negative heme, negative CSF were noted. I then proceeded to thread the catheter in easily. The Tuohy needle was taken out and then catheter was pulled back and secured at 15 cm. The patient tolerated that without difficulty. I then proceeded to give the patient 4 mL test dose at that time. The patient was then laid in supine position with head of bed slightly elevated and left uterine displacement. After several minutes, the patient showed no signs of intravascular injection of local anesthetic or subarachnoid injection of local anesthetic. I then proceeded to give the patient 12 mL bolus via the epidural of 0.2% ropivacaine and started her on a 0.2% ropivacaine drip at 12 mL/h. The patient tolerated the entire procedure without difficulty. Please refer to the nurse's notes for vital signs. The patient tolerated the bolus without difficulty also. We will continue to monitor the patient as needed. Carlo Trivedi CRNA /[id number]
[2019-06-16] MEDS ORDERED: Docusate Sodium 100 MG Cap PO PRN (08:00)
--- NOTE | 2019-06-16 08:05 | PCM.PNPP ---
- General Info Date of Service: 06/16/19 Functional Status: Reports: Pain Controlled - Review of Systems General: Reports: No Symptoms HEENT: Reports: No Symptoms Pulmonary: Reports: No Symptoms Cardiovascular: Reports: No Symptoms Gastrointestinal: Reports: No Symptoms Genitourinary: Reports: No Symptoms Musculoskeletal: Reports: No Symptoms Skin: Reports: No Symptoms Neurological: Reports: No Symptoms Psychiatric: Reports: No Symptoms - General Info Date of Service: 06/16/19 - Patient Data Vital Signs - Most Recent: Last Vital Signs Temp 36.7 C 06/16/19 07:00 Pulse 88 06/16/19 07:00 Resp 18 06/16/19 07:00 BP 118/69 06/16/19 07:00 Pulse Ox 97 06/16/19 07:00 Weight - Most Recent: 92.986 kg I&O - Last 24 Hours: Intake & Output 06/15/19 06/16/19 06/16/19 22:59 06:59 14:59 Intake Total 4397 Balance 4397 Lab Results - Last 24 Hours: Laboratory Results - last 24 hr 06/15/19 06/15/19 06/15/19 Range/Units 11:10 11:11 11:51 WBC (4.5-11.0) K/uL RBC (3.30-5.50) M/uL Hgb (12.0-15.0) g/dL Hct (36.0-48.0) % MCV (80-98) fL MCH (27-31) pg MCHC (32-36) % Plt Count (150-400) K/uL Neut % (Auto) (36-66) % Lymph % (Auto) (24-44) % [place] % (Auto) (2-6) % Eos % (Auto) (2-4) % Baso % (Auto) (0-1) % Urine Color Yellow (YELLOW) Urine Appearance Slightly cloudy A (CLEAR) Urine pH 7.0 (5.0-8.0) Ur Specific [place] 1.020 (1.008-1.030) Urine Protein 30 H (NEGATIVE) mg/dL Urine Glucose (UA) Negative (NEGATIVE) mg/dL Urine Ketones Negative (NEGATIVE) mg/dL Urine Occult Blood Large H (NEGATIVE) Urine Nitrite Negative (NEGATIVE) Urine Bilirubin Negative (NEGATIVE) Urine Urobilinogen 1.0 (0.2-1.0) EU/dL Ur Leukocyte Esterase Negative (NEGATIVE) Urine RBC 10-20 H (0-5) Urine WBC 0-5 (0-5) Ur Epithelial Cells Many Amorphous Sediment Not seen Urine Bacteria Few Urine Mucus Not seen Membrane Rupture Positive H (NEGATIVE) Urine Opiates Screen Negative (NEGATIVE) Ur Oxycodone Screen Negative (NEGATIVE) Urine Methadone Screen Negative (NEGATIVE) Ur Propoxyphene Screen Negative (NEGATIVE) Ur Barbiturates Screen Negative (NEGATIVE) Ur Tricyclics Screen Negative (NEGATIVE) Ur Phencyclidine Scrn Negative (NEGATIVE) Ur Amphetamine Screen Negative (NEGATIVE) U Methamphetamines Scrn Negative (NEGATIVE) Urine MDMA Screen Negative (NEGATIVE) U Benzodiazepines Scrn Negative (NEGATIVE) U Cocaine Metab Screen Negative (NEGATIVE) U Marijuana (THC) Screen Negative (NEGATIVE) 06/15/19 06/16/19 Range/Units 12:34 05:40 WBC 12.3 H 16.2 H (4.5-11.0) K/uL RBC 3.83 3.16 L (3.30-5.50) M/uL Hgb 9.7 L 8.1 L (12.0-15.0) g/dL Hct 31.6 L 26.3 L (36.0-48.0) % MCV 83 83 (80-98) fL MCH 25 L 26 L (27-31) pg MCHC 31 L 31 L (32-36) % Plt Count 445 H 351 (150-400) K/uL Neut % (Auto) 76 H 73 H (36-66) % Lymph % (Auto) 16 L 19 L (24-44) % [place] % (Auto) 7 H 7 H (2-6) % Eos % (Auto) 1 L 1 L (2-4) % Baso % (Auto) 0 0 (0-1) % Urine Color (YELLOW) Urine Appearance (CLEAR) Urine pH (5.0-8.0) Ur Specific [place] (1.008-1.030) Urine Protein (NEGATIVE) mg/dL Urine Glucose (UA) (NEGATIVE) mg/dL Urine Ketones (NEGATIVE) mg/dL Urine Occult Blood (NEGATIVE) Urine Nitrite (NEGATIVE) Urine Bilirubin (NEGATIVE) Urine Urobilinogen (0.2-1.0) EU/dL Ur Leukocyte Esterase (NEGATIVE) Urine RBC (0-5) Urine WBC (0-5) Ur Epithelial Cells Amorphous Sediment Urine Bacteria Urine Mucus Membrane Rupture (NEGATIVE) Urine Opiates Screen (NEGATIVE) Ur Oxycodone Screen (NEGATIVE) Urine Methadone Screen (NEGATIVE) Ur Propoxyphene Screen (NEGATIVE) Ur Barbiturates Screen (NEGATIVE) Ur Tricyclics Screen (NEGATIVE) Ur Phencyclidine Scrn (NEGATIVE) Ur Amphetamine Screen (NEGATIVE) U Methamphetamines Scrn (NEGATIVE) Urine MDMA Screen (NEGATIVE) U Benzodiazepines Scrn (NEGATIVE) U Cocaine Metab Screen (NEGATIVE) U Marijuana (THC) Screen (NEGATIVE) Med Orders - Current: Current Medications Acetaminophen (Tylenol) 650 mg PO Q4H PRN PRN Reason: Pain (Mild 1-3) and fever Acetaminophen (Tylenol Bulk Bottle) 0 mg PO Q4H PRN PRN Reason: Pain Last Admin: 06/15/19 20:02 Dose: 650 mg Diphenhydramine HCl (Benadryl) 25 mg IVPUSH Q6H PRN PRN Reason: Itching Diphenhydramine HCl (Benadryl) 50 mg IVPUSH Q6H PRN PRN Reason: Itching Docusate Sodium (Colace) 100 mg PO BID PRN PRN Reason: Constipation Docusate Sodium (Colace) 200 mg PO BID PRN PRN Reason: Constipation Ephedrine Sulfate (Ephedrine Sulfate) 10 mg IVPUSH ASDIRECTED PRN PRN Reason: Hypotension Last Admin: 06/15/19 16:11 Dose: 10 mg Ephedrine Sulfate (Ephedrine Sulfate) 10 mg IVPUSH ASDIRECTED PRN PRN Reason: Hypotension Ferrous Sulfate (Ferrous Sulfate) 325 mg PO B[facility]MEALS [facility] Oxytocin/Sodium Chloride (Pitocin In Ns 20 Units/1,000 Ml) 20 unit in 1,000 mls @ 6 mls/hr IV TITRATE [facility]; Protocol Last Titration: 06/15/19 19:02 Dose: 999 mls/hr Ropivacaine 200 mg/ Premix 100 mls @ 0 mls/hr EPIDUR ASDIRECTED [facility] Last Admin: 06/15/19 15:45 Dose: 12 mls/hr Lactated Ringer's (Ringers, Lactated) 1,000 mls @ 125 mls/hr IV ASDIRECTED [facility] Last Admin: 06/15/19 20:02 Dose: 125 mls/hr Ibuprofen (Motrin Bulk Bottle) 600 mg PO Q6H PRN PRN Reason: Pain Last Admin: 06/15/19 20:01 Dose: 600 mg Naloxone HCl (Narcan) 0.1 mg IVPUSH ASDIRECTED PRN PRN Reason: Oversedation Ondansetron HCl (Zofran) 4 mg IV Q4H PRN PRN Reason: Nausea/Vomiting Sodium Chloride (Saline Flush) 10 ml FLUSH ASDIRECTED PRN PRN Reason: Keep Vein Open Discontinued Medications Benzocaine ([id number]-[id number] 20% [place]) 0 gm TOP ONETIME ONE Stop: 06/15/19 19:09 Last Admin: 06/15/19 20:01 Dose: 1 applic Emollient Ointment (Lansinoh Hpa) 1 gm TOP ONETIME ONE Stop: 06/15/19 19:09 Last Admin: 06/15/19 20:00 Dose: 1 applicful Lactated Ringer's (Ringers, Lactated) 1,000 mls @ 999 mls/hr IV .BOLUS ONE Stop: 06/15/19 14:54 Last Admin: 06/15/19 14:10 Dose: 999 mls/hr Ropivacaine (Naropin 0.2%) Confirm Administered Dose 100 mls @ as directed .ROUTE .STK-MED ONE Stop: 06/15/19 15:51 Lactated Ringer's (Ringers, Lactated) 1,000 mls @ 999 mls/hr IV BOLUS ONE Stop: 06/15/19 17:10 Last Admin: 06/15/19 19:59 Dose: 999 mls/hr Gabino Henao (Tucks) 1 pad TOP ONETIME ONE Stop: 06/15/19 19:09 Last Admin: 06/15/19 20:01 Dose: 1 applic - Infant Interaction Infant Disposition, : [place] to Nursery Interaction: Holding Infant Feeding: Breastfed ; Nursed Well, Encouraged to Breastfeed Support Person: Significant Other - Recovery Exam Fundal Tone: Firm Fundal Level: 1 Fingerbreadths Above Umbilicus Fundal Placement: Left Lochia Amount: Moderate Lochia Color: Rubra/Red Perineum Description: Intact, Minimal Bruising/Swelling, Edematous Episiotomy/Laceration: Approximated Bladder Status: Voiding Urinary Elimination: Voided - Exam General: Alert, Oriented, Cooperative HEENT: Pupils Equal, Pupils Reactive, EOMI, Mucous Membr. Moist/[place] Neck: Supple Lungs: Clear to Auscultation, Normal Respiratory Effort Cardiovascular: Regular Rate, Regular Rhythm GI/Abdominal Exam: Normal Bowel Sounds, Soft, Non-Tender, No Organomegaly, No Distention, No Abnormal Bruit, No Mass, Pelvis Stable Extremities: Normal Inspection, Normal Range of Motion, Non-Tender, No Pedal Edema, Normal Capillary Refill Skin: Warm, Dry, Intact Neurological: No New Focal Deficit Psy/Mental Status: Alert, Normal Affect, Normal Mood - Problem List & Annotations (1) SNOMED Code(s): 60495309 Code(s): Z34.90 - ENCNTR FOR SUPRVSN OF NORMAL , UNSP, UNSP TRIMESTER Status: Acute Current Visit: Yes Qualifiers: Weeks of gestation: 38 weeks Qualified Code(s): Z3A.38 - 38 weeks gestation of (2) History of drug abuse SNOMED Code(s): 810982212 Code(s): F19.11 - OTHER PSYCHOACTIVE SUBSTANCE ABUSE, IN REMISSION Status: Acute Current Visit: Yes (3) Hepatitis C antibody test positive SNOMED Code(s): 238626781 Code(s): R76.8 - OTHER SPECIFIED ABNORMAL IMMUNOLOGICAL FINDINGS IN SERUM Status: Chronic Current Visit: Yes (4) SROM (spontaneous rupture of membranes) SNOMED Code(s): 057911221 Code(s): FTX1344 - Status: Acute Current Visit: Yes (5) Advanced maternal age (AMA) in SNOMED Code(s): 839544365 Code(s): PYW6673 - Status: Acute Current Visit: Yes - Problem List Review Problem List Initiated/Reviewed/Updated: Yes - My Orders Last 24 Hours: My Active Orders 06/15/19 11:10 OB Check [OM.PC] Click to Edit 06/15/19 13:54 Patient Status [ADT] Routine May Shower [RC] ASDIRECTED Notify Provider Vital Signs [RC] PRN Oxygen Therapy [RC] ASDIRECTED Peripheral IV Care [RC] . DIRECTED Up ad Lisa [RC] ASDIRECTED Up to Chair [RC] QID Vital Signs [RC] PER UNIT ROUTINE Acetaminophen [Tylenol] 650 mg PO Q4H PRN Naloxone [Narcan] 0.1 mg IVPUSH ASDIRECTED PRN Ondansetron [Zofran] 4 mg IV Q4H PRN Sodium Chloride 0.9% [Saline Flush] 10 ml FLUSH ASDIRECTED PRN diphenhydrAMINE [Benadryl] 25 mg IVPUSH Q6H PRN diphenhydrAMINE [Benadryl] 50 mg IVPUSH Q6H PRN ePHEDrine [ePHEDrine sulfate] 10 mg IVPUSH ASDIRECTED PRN ePHEDrine [ePHEDrine sulfate] 10 mg IVPUSH ASDIRECTED PRN Epidural Catheter Management [OM.PC] Routine Epidural Catheter Management [OM.PC] Urgent Peripheral IV Insertion Pediatric [OM.PC] Routine Saline Lock Insert [OM.PC] Routine Resuscitation Status Routine 06/15/19 14:00 Insert Urinary Catheter [OM.PC] ASDIRECTED Oxytocin/Normal Saline [Pitocin in NS 20 Units/1,000 ML] 20 unit in 1,000 ml IV TITRATE Ropivacaine [Naropin 0.2%] 200 mg Premix Bag 1 bag EPIDUR ASDIRECTED 06/15/19 17:15 Lactated Ringers [Ringers, Lactated] 1,000 ml IV ASDIRECTED 06/15/19 19:08 Ambulate [RC] PER UNIT ROUTINE Consult to Case Management/Sack Department Supervisor [CONS] Routine Acetaminophen [Tylenol Bulk Bottle] See Dose Instructions PO Q4H PRN Docusate Sodium [Colace] 100 mg PO BID PRN Ibuprofen [Motrin Bulk Bottle] 600 mg PO Q6H PRN Assess Lochia [WOMSER] Per Unit Routine Assess Uterine Involution [WOMSER] Per Unit Routine DVT/VTE Prophylaxis Reflex [OM.PC] Routine 06/15/19 19:09 Patient Status [ADT] Routine Vital Signs [RC] PFP 06/15/19 19:10 VTE/DVT Education [RC] Click to Edit Perineal Care [OM.PC] Per Unit Routine 06/15/19 Lunch Regular Diet [DIET] 06/16/19 08:00 Docusate Sodium [Colace] 200 mg PO BID PRN Ferrous Sulfate 325 mg PO BIDMEALS - Assessment Assessment:: 06/15/2019 34 yo without complications History of drug abuse Hepatitis C Anemia-iron deficiency anemia 06/16/2019 without complications day one History of drug abuse Hepatitis C Anemia-iron deficiency [id number] well voiding and passing gas Fundus firm and bleeding decreasing - Plan Plan:: 06/15/2019 34 yo who came in today with SROM around 1030 at home. Amnisure positive SVE-2-/-1 Can feel a forebag Contractions irregular FHTs category one History of drug abuse Late to care Hepatitis C positive Labs-O positive, RPR nonreactive, Hep B neg, HIV neg, GBS neg, Hgb-9.7 Plan- Monitor for labor Monitor FHTs Second IV for low hgb risk Start pitocin to augment labor Patient desires an epidural Once comfortable will come break her forebag Plan and anticipate a vaginal delivery 06/15/2019 Routine cares Encourage and support Social Service consult 06/16/2019 Continue routine cares Continue to encourage and support Social Service consult Have see today
[2019-06-16] MEDS: Ferrous Sulfate 325 MG Tab PO SCH ×2 (08:42→17:06)
[2019-06-17] MEDS: Ferrous Sulfate 325 MG Tab PO SCH (07:24)
--- NOTE | 2019-06-17 08:04 | PCM.PNPP ---
- General Info Date of Service: 06/17/19 Functional Status: Reports: Pain Controlled - Review of Systems General: Reports: No Symptoms HEENT: Reports: No Symptoms Pulmonary: Reports: No Symptoms Cardiovascular: Reports: No Symptoms Gastrointestinal: Reports: No Symptoms Genitourinary: Reports: No Symptoms Musculoskeletal: Reports: No Symptoms Skin: Reports: No Symptoms Neurological: Reports: No Symptoms Psychiatric: Reports: No Symptoms - General Info Date of Service: 06/17/19 - Patient Data Vital Signs - Most Recent: Last Vital Signs Temp 36.1 C 06/17/19 07:19 Pulse 71 06/17/19 07:19 Resp 16 06/17/19 07:19 BP 123/84 06/17/19 07:19 Pulse Ox 100 06/17/19 07:19 Weight - Most Recent: 92.986 kg I&O - Last 24 Hours: Intake & Output 06/16/19 06/17/19 06/17/19 22:59 06:59 14:59 Intake Total 500 Balance 500 Med Orders - Current: Current Medications Acetaminophen (Tylenol) 650 mg PO Q4H PRN PRN Reason: Pain (Mild 1-3) and fever Acetaminophen (Tylenol Bulk Bottle) 0 mg PO Q4H PRN PRN Reason: Pain Last Admin: 06/15/19 20:02 Dose: 650 mg Diphenhydramine HCl (Benadryl) 25 mg IVPUSH Q6H PRN PRN Reason: Itching Diphenhydramine HCl (Benadryl) 50 mg IVPUSH Q6H PRN PRN Reason: Itching Docusate Sodium (Colace) 100 mg PO BID PRN PRN Reason: Constipation Docusate Sodium (Colace) 200 mg PO BID PRN PRN Reason: Constipation Ephedrine Sulfate (Ephedrine Sulfate) 10 mg IVPUSH ASDIRECTED PRN PRN Reason: Hypotension Last Admin: 06/15/19 16:11 Dose: 10 mg Ephedrine Sulfate (Ephedrine Sulfate) 10 mg IVPUSH ASDIRECTED PRN PRN Reason: Hypotension Ferrous Sulfate (Ferrous Sulfate) 325 mg PO BIDMEALS [facility] Last Admin: 06/17/19 07:24 Dose: 325 mg Oxytocin/Sodium Chloride (Pitocin In Ns 20 Units/1,000 Ml) 20 unit in 1,000 mls @ 6 mls/hr IV TITRATE [facility]; Protocol Last Titration: 06/15/19 19:02 Dose: 999 mls/hr Ropivacaine 200 mg/ Premix 100 mls @ 0 mls/hr EPIDUR ASDIRECTED [facility] Last Admin: 06/15/19 15:45 Dose: 12 mls/hr Lactated Ringer's (Ringers, Lactated) 1,000 mls @ 125 mls/hr IV ASDIRECTED [facility] Last Admin: 06/15/19 20:02 Dose: 125 mls/hr Ibuprofen (Motrin Bulk Bottle) 600 mg PO Q6H PRN PRN Reason: Pain Last Admin: 06/15/19 20:01 Dose: 600 mg Naloxone HCl (Narcan) 0.1 mg IVPUSH ASDIRECTED PRN PRN Reason: Oversedation Ondansetron HCl (Zofran) 4 mg IV Q4H PRN PRN Reason: Nausea/Vomiting Sodium Chloride (Saline Flush) 10 ml FLUSH ASDIRECTED PRN PRN Reason: Keep Vein Open Discontinued Medications Benzocaine (Ixhk-F-Dgnmhnf 20% [place]) 0 gm TOP ONETIME ONE Stop: 06/15/19 19:09 Last Admin: 06/15/19 20:01 Dose: 1 applic Emollient Ointment (Lansinoh Hpa) 1 gm TOP ONETIME ONE Stop: 06/15/19 19:09 Last Admin: 06/15/19 20:00 Dose: 1 applicful Lactated Ringer's (Ringers, Lactated) 1,000 mls @ 999 mls/hr IV .BOLUS ONE Stop: 06/15/19 14:54 Last Admin: 06/15/19 14:10 Dose: 999 mls/hr Ropivacaine (Naropin 0.2%) Confirm Administered Dose 100 mls @ as directed .ROUTE .STK-MED ONE Stop: 06/15/19 15:51 Lactated Ringer's (Ringers, Lactated) 1,000 mls @ 999 mls/hr IV BOLUS ONE Stop: 06/15/19 17:10 Last Admin: 06/15/19 19:59 Dose: 999 mls/hr Witch Earlene (Tucks) 1 pad TOP ONETIME ONE Stop: 06/15/19 19:09 Last Admin: 06/15/19 20:01 Dose: 1 applic - Interaction Disposition, : [place] to Nursery Infant Interaction: Holding Infant Infant Feeding: Breastfed Infant; Nursed Well, Encouraged to Breastfeed Support Person: Significant Other - Recovery Exam Fundal Tone: Firm Fundal Level: 1 Fingerbreadths Below Umbilicus Fundal Placement: Midline Lochia Amount: Small Lochia Color: Rubra/Red Perineum Description: Intact, Minimal Bruising/Swelling Episiotomy/Laceration: None Bladder Status: Voiding Urinary Elimination: Voided - Exam General: Alert, Oriented, Cooperative HEENT: Pupils Equal, Pupils Reactive, EOMI, Mucous Membr. Moist/[place] Neck: Supple Lungs: Clear to Auscultation, Normal Respiratory Effort Cardiovascular: Regular Rate, Regular Rhythm GI/Abdominal Exam: Normal Bowel Sounds, Soft, Non-Tender, No Organomegaly, No Distention, No Abnormal Bruit, No Mass, Pelvis Stable Extremities: Normal Inspection, Normal Range of Motion, Non-Tender, No Pedal Edema, Normal Capillary Refill Skin: Warm, Dry, Intact Neurological: No New Focal Deficit Psy/Mental Status: Alert, Normal Affect, Normal Mood - Problem List & Annotations (1) SNOMED Code(s): 73373879 Code(s): Z34.90 - ENCNTR FOR SUPRVSN OF NORMAL , UNSP, UNSP TRIMESTER Status: Acute Current Visit: Yes Qualifiers: Weeks of gestation: 38 weeks Qualified Code(s): Z3A.38 - 38 weeks gestation of (2) History of drug abuse SNOMED Code(s): 131417525 Code(s): F19.11 - OTHER PSYCHOACTIVE SUBSTANCE ABUSE, IN REMISSION Status: Acute Current Visit: Yes (3) Hepatitis C antibody test positive SNOMED Code(s): 950125708 Code(s): R76.8 - OTHER SPECIFIED ABNORMAL IMMUNOLOGICAL FINDINGS IN SERUM Status: Chronic Current Visit: Yes (4) SROM (spontaneous rupture of membranes) SNOMED Code(s): 484562135 Code(s): NCC7290 - Status: Acute Current Visit: Yes (5) Advanced maternal age (AMA) in SNOMED Code(s): 115423387 Code(s): AYO9342 - Status: Acute Current Visit: Yes - Problem List Review Problem List Initiated/Reviewed/Updated: Yes - My Orders Last 24 Hours: My Active Orders 06/16/19 08:00 Docusate Sodium [Colace] 200 mg PO BID PRN Ferrous Sulfate 325 mg PO BIDMEALS - Assessment Assessment:: 06/15/2019 34 yo without complications History of drug abuse Hepatitis C Anemia-iron deficiency anemia 06/16/2019 without complications day one History of drug abuse Hepatitis C Anemia-iron deficiency [id number] well voiding and passing gas Fundus firm and bleeding decreasing 06/17/2019 without complications day two History of drug abuse Hepatitis C Anemia-iron deficiency [id number]-1.1 well voiding and passing gas Fundus firm and bleeding decreasing - Plan Plan:: 06/15/2019 34 yo who came in today with SROM around 1030 at home. Amnisure positive SVE-2-/-1 Can feel a forebag Contractions irregular FHTs category one History of drug abuse Late to care Hepatitis C positive Labs-O positive, RPR nonreactive, Hep B neg, HIV neg, GBS neg, Hgb-9.7 Plan- Monitor for labor Monitor FHTs Second IV for low hgb risk Start pitocin to augment labor Patient desires an epidural Once comfortable will come break her forebag Plan and anticipate a vaginal delivery 06/15/2019 Routine cares Encourage and support Social Service consult 06/16/2019 Continue routine cares Continue to encourage and support Social Service consult Have see today 06/17/2019 Continue routine cares Continue to encourage and support Social Service consult Discharge home if social service consult is good
== END 2019-06-17 10:30 | disposition home or self-care (01) | DRG 807 ==
LOC: JP.OBCHECK 11:05 → JP.OB 12:03 → OBSVTOIN 18:51 → JP.MS 23:00
PROVIDERS: ADMIT Advanced Practice Midwife; ATTEND Advanced Practice Midwife
PROC: 10E0XZZ Delivery of Products of Conception, External Approach (ICD-10-PCS; principal; 2019-06-15)
PROC: 3E0R3BZ Introduction of Anesthetic Agent into Spinal Canal, Percutaneous Approach (ICD-10-PCS; 2019-06-15)
PROC: 00HU33Z Insertion of Infusion Device into Spinal Canal, Percutaneous Approach (ICD-10-PCS; 2019-06-15)
DX: O69.81X0 Labor and delivery complicated by cord around neck, without compression, not applicable or unspecified (principal); Z37.0 Single live birth; O99.334 Smoking (tobacco) complicating childbirth; F17.200 Nicotine dependence, unspecified, uncomplicated; O99.02 Anemia complicating childbirth; D50.9 Iron deficiency anemia, unspecified; O99.89 Other specified diseases and conditions complicating pregnancy, childbirth and the puerperium; R76.8 Other specified abnormal immunological findings in serum; Z3A.38 38 weeks gestation of pregnancy
CPT/HCPCS: 36415; 51702; 59409; 80305-QW; 81001; 84112; 85025; 99211; A9270-GY; J2590; J2795; J7120